=== PATIENT | male | born 1975 | race Caucasian/White ===

== ENCOUNTER 2023-06-07 12:24 | Emergency (ER) | payer OTHER ==
[~2023-06-07] VITALS: Ht 175.3 cm; Wt 68.0 kg
[2023-06-07] MEDS ORDERED: Buprenorphine HCL/Naloxone HCL 8MG-2MG Tab SL ONE (13:50)
[2023-06-07] MEDS ORDERED: SUBOXONE 8 MG-1 EACH SL (15:08)
== END 2023-06-07 15:16 | disposition home or self-care (01) ==
LOC: ER 12:24
DX: Z76.0 Encounter for issue of repeat prescription (principal); F11.90 Opioid use, unspecified, uncomplicated
CPT/HCPCS: 99281; A9270

== ENCOUNTER 2023-09-26 12:47 | Emergency (ER) | payer OTHER ==
[~2023-09-26] VITALS: Ht 175.3 cm; Wt 68.0 kg
[~2023-09-26 12:47] MED LIST: SUBOXONE 8 MG-1 EACH SL
[2023-09-26 13:14] LABS: BASOPHILS ABSOLUTE AUTO 0.03 K/mm3 (0.00-0.23); BASOPHILS PERCENT AUTO 0 % (0-2); EOSINOPHILS ABSOLUTE AUTO 0.03 K/mm3 (0.00-0.68); EOSINOPHILS PERCENT AUTO 0 % (0-6); Hematocrit 43.9 % (37.0-53.0); Hemoglobin 14.5 g/dL (13.5-17.5); IMMATURE GRAN ABSOLUTE AUTO 0.02 K/mm3 (0.00-0.10); IMMATURE GRAN PERCENT AUTO 0 % (0-1); LYMPHOCYTES ABSOLUTE AUTO 1.74 K/mm3 (0.84-5.20); LYMPHOCYTES PERCENT AUTO 23 % (21-46); MONOCYTES ABSOLUTE AUTO 0.56 K/mm3 (0.16-1.47); MONOCYTES PERCENT AUTO 7 % (4-13); Mean Corpuscular HGB 27.8 pg (26.0-34.0); Mean Corpuscular Volume 84 fL (80-100); Mean Platelet Volume 10.6 fL (9.1-12.4); NEUTROPHILS ABSOLUTE AUTO 5.27 K/mm3 (1.96-9.15); NEUTROPHILS PERCENT AUTO 69 % (41-73); Platelet Count 320 K/mm3 (150-400); RDW Coefficient Variation 19.5 % (11.7-14.2); RDW Standard Deviation 58.5 fL (35.1-46.3); Red Blood Cell Count 5.21 M/mm3 (4.30-5.90); White Blood Cell Count 7.65 K/mm3 (4.00-11.30)
[2023-09-26 13:42] LABS: Albumin, Blood 3.1 g/dL (3.4-5.0); Albumin/Globulin Ratio 0.6 (0.8-1.8); Bilirubin, Total 1.1 mg/dL (0.1-1.0); Bun/Creatinine Ratio 27.1 (12.0-20.0); Calcium, Blood 8.6 mg/dL (8.5-10.1); Creatinine, Blood 1.29 mg/dL (0.60-1.20); Globulin, Blood 4.9 g/dL (2.2-4.0); Potassium, Blood 4.2 mmol/L (3.5-5.5)
[2023-09-26] MEDS ORDERED: Ketorolac Tromethamine 30mg Vial IV ONE (16:10)
[2023-09-26] MEDS ORDERED: Mag Hydrox/AL Hydrox/Simeth 30 ML UDC PO ONE (16:10)
[2023-09-26] MEDS ORDERED: Lidocaine 2% Viscous Soln 15 ML UDC PO ONE (16:10)
[2023-09-26] MEDS ORDERED: Atropine/Scopalam/Hyoscam/PB 5 ML UDC PO ONE (16:10)
[2023-09-26] MEDS ORDERED: LISI5 PO (16:34)
[2023-09-26] MEDS ORDERED: Methadone HCL 10 MG TAB PO ONE (17:00)
[2023-09-27] MEDS ORDERED: METH40 (13:03)
[2023-09-27] MEDS ORDERED: BUPRENORPHINE-1 EACH SL ×2 (16:39)
== END 2023-09-26 17:31 | disposition home or self-care (01) ==
LOC: ER 12:47
PROVIDERS: Emergency Medicine
DX: F11.93 Opioid use, unspecified with withdrawal (principal); R07.81 Pleurodynia; R10.11 Right upper quadrant pain
CPT/HCPCS: 36415; 71046; 80053; 83690; 85025; 93005; 93010; 96374; 99284-25; A9270; J1885

== ENCOUNTER 2023-09-27 08:04 | Inpatient (IN) | payer OTHER ==
[~2023-09-27] VITALS: Ht 175.3 cm; Wt 60.5 kg
[2023-09-27] VITALS (26 sets, daily range): BP systolic 126–168; BP diastolic 86–109
[~2023-09-27 08:04] MED LIST changes: +LISI5 PO
[2023-09-27] MEDS ORDERED: NS 1,000 ML IV SCH ×2 (09:10→10:45)
[2023-09-27 10:36] LABS: Source, Urine Clean Catch
[2023-09-27 10:42] LABS: Appearance, Urine Clear (Clear); Bilirubin, Urine Neg (Neg); Blood, Urine 3+ (Neg); Color, Urine Yellow (P-Yellow); Glucose Qualitative, Urine Neg (Neg); Ketones, Urine 2+ (Neg); Leukocyte Esterase, Urine 1+ (Neg); Nitrite, Urine Neg (Neg); Protein, Urine 4+ (Neg); Specific Gravity, Urine 1.015 (1.003-1.022); Urobilinogen, Urine NORM (Normal)
[2023-09-27] MEDS ORDERED: HYDROmorphone HCl/Pf 1MG SYR IV ONE (10:45)
[2023-09-27] MEDS ORDERED: Ondansetron HCl 2 MG / ML 2ML Vial IV ONE (10:45)
[2023-09-27 10:48] LABS: Bacteria Few /hpf; Mucus Light (0-Heavy); Squamous Epithelial Cells Rare /hpf (Few)
[2023-09-27] MEDS ORDERED: HydrALAZINE HCl 20 MG / ML 1ML Vial IV ONE ×2 (10:50→14:00)
[2023-09-27] MEDS ORDERED: Ketorolac Tromethamine 30mg Vial IV ONE (11:45)
[2023-09-27 11:54] LABS: BASOPHILS ABSOLUTE AUTO 0.05 K/mm3 (0.00-0.23); BASOPHILS PERCENT AUTO 0 % (0-2); EOSINOPHILS ABSOLUTE AUTO 0.01 K/mm3 (0.00-0.68); EOSINOPHILS PERCENT AUTO 0 % (0-6); Hematocrit 54.5 % (37.0-53.0); Hemoglobin 17.8 g/dL (13.5-17.5); IMMATURE GRAN ABSOLUTE AUTO 0.04 K/mm3 (0.00-0.10); IMMATURE GRAN PERCENT AUTO 0 % (0-1); LYMPHOCYTES ABSOLUTE AUTO 1.29 K/mm3 (0.84-5.20); LYMPHOCYTES PERCENT AUTO 12 % (21-46); MONOCYTES ABSOLUTE AUTO 0.59 K/mm3 (0.16-1.47); MONOCYTES PERCENT AUTO 5 % (4-13); Mean Corpuscular HGB 27.6 pg (26.0-34.0); Mean Corpuscular HGB Conc 32.7 g/dL (31.5-36.5); Mean Corpuscular Volume 84 fL (80-100); Mean Platelet Volume 10.8 fL (9.1-12.4); NEUTROPHILS PERCENT AUTO 82 % (41-73); Platelet Count 387 K/mm3 (150-400); RDW Standard Deviation 57.2 fL (35.1-46.3); Red Blood Cell Count 6.46 M/mm3 (4.30-5.90); White Blood Cell Count 11.18 K/mm3 (4.00-11.30)
[2023-09-27 12:18] LABS: Albumin, Blood 3.5 g/dL (3.4-5.0); Albumin/Globulin Ratio 0.6 (0.8-1.8); Bilirubin, Total 0.9 mg/dL (0.1-1.0); Bun/Creatinine Ratio 22.1 (12.0-20.0); Calcium, Blood 9.2 mg/dL (8.5-10.1); Creatinine, Blood 1.49 mg/dL (0.60-1.20); Globulin, Blood 5.6 g/dL (2.2-4.0); Potassium, Blood 3.6 mmol/L (3.5-5.5); Total Protein, Blood 9.1 g/dL (6.4-8.2)
[2023-09-27] MEDS ORDERED: Piperacillin/Tazobactam Sod 4.5 GM in NS 100 ML IV ONE (12:30)
[2023-09-27] MEDS ORDERED: Rocuronium Bromide 10 MG/ML 5ML Injection IV ONE ×3 (12:32→14:30)
[2023-09-27] MEDS ORDERED: propofoL 20 ML IV ONE (12:32)
[2023-09-27] MEDS ORDERED: FentaNYL Citrate 50 MCG/ML 2 ML Injection ONE ×2 (12:32→13:51)
[2023-09-27] MEDS ORDERED: Bupivacaine 0.5% HCl 5 MG/ML 30MLVIAL ONE (12:48)
[2023-09-27] MEDS ORDERED: HydrALAZINE HCl 20 MG / ML 1ML Vial IV PRN ×2 (12:55→14:00)
[2023-09-27] MEDS ORDERED: HYDROmorphone HCl/Pf 1MG SYR IV PRN ×3 (12:55→14:45)
[2023-09-27] MEDS ORDERED: Lactated Ringer's 1,000 ML IV SCH ×2 (12:55→14:00)
[2023-09-27] MEDS ORDERED: Indocyanine Green 25 MG Vial IV ONE (13:00)
[2023-09-27] MEDS ORDERED: METH40 (13:03)
[2023-09-27] MEDS ORDERED: Lactated Ringer's 1,000 ML IV ONE (13:14)
--- NOTE | 2023-09-27 13:15 | NUR ---
PT TRANSPORTED FROM ER 18 TO [facility]. PT ASSISTED INTO GOWN. PT APPEARS VERY UNKEPT. PT SKIN DRY, FLAKY,DIAPHORETIC AND DIRTY. TRACK KEE NOTED TO PT ARMS. PT REPORTS 10/10 ABDOMEN AND LOW BACK PAIN. PT INITIALLY REFUSING TO ANSWER QUESTIONS REGARDING HIS MEDICAL HISTORY. RN EXPLAINED THAT IT IS IMPORTANT TO ANSWER THESE QUESTIONS IN ORDER TO UNDERGO ANESTHESIA/SURGERY. PT ANSWERING QUESTIONS WITH ONE WORD SENTENCES. NKDA/NPO STATUS CONFIRMED. NGT TO RIGHT NARE PLACED TO MEDIUM, CONTINUOUS SUCTION AFTER PT VOMITED APROXIMATELY 450 CC OF CLEAR, YELLOW EMESIS. PT IS DIFFICULT VENIPUNCTURE-#18 PIV PLACED TO LEFT FOREARM. PT HYPERTENSIVE AND TACHYCARDIC-HR 100-120'S. LUNGS DIMINISHED T/O-RR 22-28 AND SHALLOW-SATS>90% ON RA.
--- NOTE | 2023-09-27 13:24 | NUR ---
PT HERE FROM ER VIA [facility] FOR ROBOTIC DX LAP FOR MIDGUT VOLVULUS. PT HAS NG TUBE IN PLACE, CLINICAL SPECIALIST VASCULAR TO SUCTION. PT CURLED UP ON SIDE IN POSITION ASKING TO "JUST BE KNOCKED OUT." DR. WATERS AND DR. FRANCES HERE TO SEE PT. Pre-Op teaching done. Pt verbalizes understanding. History, Chart, Medications and Allergies reviewed before start of procedure.Patient confirms NPO status and agrees with scheduled surgery.
[2023-09-27] MEDS ORDERED: Labetalol HCL 5 MG/ML 4ML Injection (Single Dose) ONE (13:47)
[2023-09-27] MEDS ORDERED: Ketamine HCl 100 MG / ML 5ML Vial ONE (13:51)
[2023-09-27] MEDS ORDERED: HYDROmorphone HCl/Pf 1MG SYR ONE (14:11)
[2023-09-27] MEDS ORDERED: HydrALAZINE HCl 20 MG / ML 1ML Vial ONE (14:14)
[2023-09-27] MEDS ORDERED: Ondansetron HCl 2 MG / ML 2ML Vial ONE (14:19)
[2023-09-27] MEDS ORDERED: Dexamethasone Sod Phos 10 MG/ML 1ML VIAL ONE (14:19)
[2023-09-27] MEDS ORDERED: FentaNYL Citrate 50 MCG/ML 2 ML Injection IV PRN ×2 (14:40→14:45)
[2023-09-27] MEDS ORDERED: Ondansetron HCl 2 MG / ML 2ML Vial IV PRN (14:40)
[2023-09-27] MEDS ORDERED: Sugammadex Sodium 200 MG/2ML SDV (100 MG/ML) ONE ×2 (15:03→15:10)
[2023-09-27] MEDS ORDERED: BUPRENORPHINE-1 EACH SL ×2 (16:39)
--- NOTE | 2023-09-27 17:43 | NUR ---
ARRIVAL TO PCU 9/SHIFT SUMMARY PT ARRIVED TO PCU 9 AT APPROXIMATELY 1600. PT SLID OVER FROM OR [facility] TO HOSPITAL BAED BY 4 CLINICAL STAFF MEMBERS. PT RESPONDS TO VERBAL STIMULI BUT VERY DROWSY AFTER PROCEDURE, ORIENTED TO CALL LIGHT/UNIT. SpO2> 92% RA, DENIES SOB. BP ELEVATED, MANAGING PER EMAR, SINUS GREGORIA-SINUS 40-60's, DOWN TO 40's WHEN SLEEPING HEAVILY; DENEIS CP/PRESSURE. PT ARRIVED WITH NG TUBE IN PLACED, CONNECTED TO LOW INTERMITTENT SUCTION. PT HAS FOUR, SMALL INCISIONS FROM LAPAROSCOPIC PROCEDURE, OPEN TO AIR, WNL/ BED IN LOWEST POSITION, CALL LIGHT IN REACH. NO OTHER EVENTS, WILL REPORT TO ONCOMING RN.
[2023-09-28] VITALS (11 sets, daily range): BP systolic 123–159; BP diastolic 69–99
[2023-09-28] MEDS ORDERED: Enoxaparin 40 MG/0.4 ML SYR SC SCH
[2023-09-28] MEDS ORDERED: Piperacillin/Tazobactam Sod 3.375 GM in NS 100 ML IV SCH
--- NOTE | 2023-09-28 01:12 | NUR ---
NG TUBE REMOVED BY PATIENT UPON ENTRANCE INTO ROOM, RN NOTICED THE PATIENT'S NG TUBE HAD BEEN REMOVED. IT WAS LYING IN THE BED WITH THE PATIENT. PATIENT CONFIRMED THAT IT HAD COME OUT A LITTLE EARLIER. MD NOTIFIED. NG TUBE WILL NOT BE REINSERTED PER ORDERS. PATIENT IS CURRENTLY NOT HAVING ANY ABD PAIN, NAUSEA, OR VOMITING.
--- NOTE | 2023-09-28 06:06 | NUR ---
SHIFT SUMMARY PATIENT ORIENTED x4 THROUGHOUT THE SHIFT. HE HAS BEEN DROWSY, HOWEVER. ABLE TO EXPRESS HIS NEEDS. COMPLAINED OF PAIN TO HIS ABD THIS AM, TREATED WITH PRN PAIN MEDS PER ORDERS WITH ADEQUATE RELIEF/RESPONSE. TOLERATING RA, SP02 93%. HTN NOTED, TREATED WITH HYDRALAZINE PRN PER ORDERS, PLEASE SEE MAR FOR DETAILS. SBP 130'S - 140'S AT THIS TIME. PATIENT PULLED OUT HIS NG TUBE OVERNIGHT, MD AWARE. REMAINS NPO EXCEPT SIPS AND CHIPS, NO NAUSEA/VOMITING. VOIDING PER URINAL. NO ACUTE EVENTS THIS SHIFT.
[2023-09-28 06:14] LABS: Hematocrit 41.3 % (37.0-53.0); Hemoglobin 13.5 g/dL (13.5-17.5); Mean Corpuscular HGB 27.4 pg (26.0-34.0); Mean Corpuscular HGB Conc 32.7 g/dL (31.5-36.5); Mean Corpuscular Volume 84 fL (80-100); Mean Platelet Volume 11.3 fL (9.1-12.4); Platelet Count 300 K/mm3 (150-400); RDW Coefficient Variation 19.2 % (11.7-14.2); RDW Standard Deviation 58.1 fL (35.1-46.3); Red Blood Cell Count 4.92 M/mm3 (4.30-5.90); White Blood Cell Count 13.59 K/mm3 (4.00-11.30)
[2023-09-28 06:56] LABS: Calcium, Blood 7.9 mg/dL (8.5-10.1); Creatinine, Blood 1.37 mg/dL (0.60-1.20); Magnesium, Blood 2.2 mg/dL (1.6-2.4); Potassium, Blood 4.1 mmol/L (3.5-5.5)
[2023-09-28] MEDS ORDERED: Methadone HCL 10 MG TAB PO SCH (09:00)
--- NOTE | 2023-09-28 10:39 | NUR ---
PT WAS FOUND IN THE BATHROOM EATING SNACKS HE OBTAINED FROM HIS BACKPACK. HE ATE SOME CRACKERS AND SOME SQUEEZABLE APPLESAUCE. PT RE-EDUCATED ON IMPORTANCE OF NOT EATING OR DRINKING ANY THING UNTIL CLEARED BY MD. PER PT "I FEEL FINE, I THOUGHT IT WOULD BE OK." PT VERBALLY AGREED TO ALLOW BACKPACK TO BE SEARCHED AFTER OBTAINING CONSENT. A WHITE WASHER PILER WAS TAKEN AND MORE FOOD ITEMS AND LOCKED IN DRAWER. PT EDUCATED HE CAN HAVE ITEMS BACK WHEN HE IS DISCHARGED FROM HOSPITAL. DR. FRANCES NOTIFIED PT ATE FOOD. PT IN NO APPARENT DISTRESS. DENIES ABD PAIN AT THIS TIME.
[2023-09-28] MEDS ORDERED: Vancomycin HCL 1,500 MG in NS 250 ML IV ONE (11:45)
[2023-09-28] MEDS ORDERED: Nicotine 21 MG PATCH TOP SCH (13:00)
--- NOTE | 2023-09-28 16:37 | NUR ---
SHIFT SUMMARY: PT IS A/O X 4 STANDBY ASSIST PLEASANT WITH CARE. PT FOUND IN BATHROOM THIS MORNING EATING SNACKS HE HAD IN HIS BACKBACK. DR. FRANCES NOTIFIED AND ADVANCED DIET TO REGULAR. PT HAS TOLERATED FOOD AND DRINKS THROUGHOUT THE DAY. PAIN HAS BEEN MANAGED WITH ORAL METHADONE. HE HAS NOT NEEDED IV DILAUDID. 4 [facility].
--- NOTE | 2023-09-28 21:45 | NUR ---
ASSUMPTION OF CARE THIS RN GOT REPORT FROM AGNIESZKA ROSALES. PT WAS RESTING AND WOKE UP WHEN THIS RN WENT TO CHECK ON THEM. PT STATES NOT NEEDING ANYTHING AT THIS TIME. CALL LIGHT WITHIN REACH
[2023-09-28] MEDS ORDERED: NS 250 ML IV PRN (22:40)
[2023-09-29] MEDS ORDERED: Vancomycin HCL 750 MG in NS 250 ML IV SCH
[2023-09-29 02:14] VITALS: BP 179/121
[2023-09-29 03:47] VITALS: BP 154/87
--- NOTE | 2023-09-29 04:25 | NUR ---
SHIFT SUMMARY POD 2 LAP MALISSA SINCE ASSUMING CARE OF THIS PT, PT HAS BEEN RESTING IN BED. PT TOLERATING INTAKE, VOIDING. X4 LAP SITES CLOSED WITH WOUND GLUE ARE C/D/I. PAIN MANAGED PER EMAR. NO OTHER CONCERNS AT THIS TIME, CALL LIGHT WITHIN REACH
[2023-09-29 05:14] LABS: Hematocrit 40.1 % (37.0-53.0); Hemoglobin 13.2 g/dL (13.5-17.5); Mean Corpuscular HGB 27.9 pg (26.0-34.0); Mean Corpuscular HGB Conc 32.9 g/dL (31.5-36.5); Mean Corpuscular Volume 85 fL (80-100); Mean Platelet Volume 11.8 fL (9.1-12.4); Platelet Count 288 K/mm3 (150-400); RDW Coefficient Variation 19.8 % (11.7-14.2); Red Blood Cell Count 4.73 M/mm3 (4.30-5.90); White Blood Cell Count 11.16 K/mm3 (4.00-11.30)
[2023-09-29 06:02] LABS: Calcium, Blood 7.9 mg/dL (8.5-10.1); Creatinine, Blood 1.26 mg/dL (0.60-1.20)
[2023-09-29 08:02] VITALS: BP 193/117
[2023-09-29] MEDS ORDERED: AmLODIPine Besylate 5 MG Tab PO SCH (09:00)
[2023-09-29] MEDS ORDERED: Lisinopril 20 MG Tab PO SCH (09:00)
[2023-09-29 09:37] VITALS: BP 163/93
[2023-09-29] MEDS ORDERED: AMLO10 PO ×2 (11:58)
[2023-09-29] MEDS ORDERED: NICO21TP TOP ×2 (11:59)
[2023-09-29] MEDS ORDERED: LISI20 PO ×2 (11:59)
[2023-09-29] MEDS ORDERED: METH10 PO ×2 (11:59)
--- NOTE | 2023-09-29 12:45 | NUR ---
DISCHARGE PT EDUCATED ON AND RECEIVED PRINTED DISCHARGE INSTRUCTIONS AND VERB AN UNDERSTANDING. NEW RX FAXED TO [facility] PER RN PRODUCTION. IV DC'D. PT LEFT WITH ALL PERSONAL BELONGINGS AND LEFT VIA TAXI SET UP BY RN PRODUCTION TO HEAD OVER TO RN PRODUCTION AT [facility].
== END 2023-09-29 12:50 | disposition home or self-care (01) | DRG 335 ==
LOC: ER 08:04 → PCU 12:54 → SURS 09-28 19:30
PROVIDERS: Emergency Medicine; Physician Assistant; Surgery; ADMIT Internal Medicine
PROC: 8E0W4CZ Robotic Assisted Procedure of Trunk Region, Percutaneous Endoscopic Approach (ICD-10-PCS; 2023-09-27)
PROC: 0DN84ZZ Release Small Intestine, Percutaneous Endoscopic Approach (ICD-10-PCS; principal; 2023-09-27 12:30)
DX: K66.0 Peritoneal adhesions (postprocedural) (postinfection) (principal); K56.2 Volvulus; E87.21 Acute metabolic acidosis; F11.20 Opioid dependence, uncomplicated; I87.1 Compression of vein; Z90.49 Acquired absence of other specified parts of digestive tract; F17.210 Nicotine dependence, cigarettes, uncomplicated; Z79.899 Other long term (current) drug therapy; I16.0 Hypertensive urgency; I12.9 Hypertensive chronic kidney disease with stage 1 through stage 4 chronic kidney disease, or unspecified chronic kidney disease; M18.30 Unilateral post-traumatic osteoarthritis of first carpometacarpal joint, unspecified hand; R07.81 Pleurodynia; R10.11 Right upper quadrant pain; Z90.81 Acquired absence of spleen
CPT/HCPCS: 36415; 71046; 74177; 80048; 80053; 81001; 83605; 83690; 83735; 85025; 85027; 87040; 87077; 87086; 87186; 93005; 93010; 94762; 96361; 96374; 96374-59; 96375; 99284-25; 99285-25; A9270; J0360; J1100; J1170; J1650; J1885; J2405; J2543; J2704; J3010; J3370; J7030; J7050; J7120; Q9967

== ENCOUNTER 2023-10-03 21:40 | Emergency (ER) | payer OTHER ==
[~2023-10-03] VITALS: Ht 175.3 cm; Wt 59.0 kg
[~2023-10-03 21:40] MED LIST changes: +AMLO10 PO; +BUPRENORPHINE-1 EACH SL; +LISI20 PO; +METH10 PO; +METH40; +NICO21TP TOP
[2023-10-03] MEDS ORDERED: Acetaminophen 500 MG Tab PO ONE (22:30)
[2023-10-03] MEDS ORDERED: Ibuprofen 600 MG Tab PO ONE (22:30)
== END 2023-10-03 23:32 | disposition home or self-care (01) ==
LOC: ER 21:40
DX: S80.01XA Contusion of right knee, initial encounter (principal); Y04.8XXA Assault by other bodily force, initial encounter; Z79.899 Other long term (current) drug therapy
CPT/HCPCS: 73560-RT; 93005; 93010; 99284-25; A9270